=== PATIENT | male | born 1985 | race Caucasian/White ===

== ENCOUNTER 2021-10-12 02:19 | Emergency (ER) | payer OTHER ==
[~2021-10-12] VITALS: Ht 185.4 cm; Wt 88.5 kg
--- NOTE | 2021-10-12 02:58 | NUR ---
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
--- NOTE | 2021-10-12 03:14 | NUR ---
Dr. Askew at bedside for MSE.
[2021-10-12 03:33] LABS: *BILIRUBIN,URIN NEGATIVE (NEGATIVE); *BLOOD, URINE NEGATIVE (NEGATIVE); *CLARITY,URINE CLEAR (CLEAR); *COLOR,URINE YELLOW (YELLOW); *KETONES,URINE TRACE (NEGATIVE); *UROBILINOGEN,URINE 0.2 E.U./dl (NORMAL); LEUKOCYTE ESTERASE ,URINE NEGATIVE (NEGATIVE); NITRITE, URINE NEGATIVE (NEGATIVE); UGLUCOSE NEGATIVE (NEGATIVE)
--- NOTE | 2021-10-12 04:30 | NUR ---
client technical professional is here for pt.
--- NOTE | 2021-10-12 05:30 | NUR ---
Patient eloped from facility. ER physician notified.
[2021-10-14 02:06] LABS: *GC NAA Negative (Negative)
[2021-10-14 06:06] LABS: *TRIC.VAG. NAA Negative (Negative)
== END 2021-10-12 05:30 | disposition left against medical advice (07) ==
LOC: ER 02:27
DX: N50.812 Left testicular pain (principal); N43.3 Hydrocele, unspecified; F17.210 Nicotine dependence, cigarettes, uncomplicated; R39.15 Urgency of urination; Z53.20 Procedure and treatment not carried out because of patient's decision for unspecified reasons
CPT/HCPCS: 76870; 87491; A4663